=== PATIENT | female | born 1975 | race American Indian/Alaskan Native ===

== ENCOUNTER 2016-12-29 05:59 | Day surgery (SDC) | payer BC, OTHER ==
[2016-12-26 14:34] VITALS: BMI 28.1
--- NOTE | 2016-12-29 00:53 | CP.SDSHP ---
Same Day Surgery H & P - History Proposed Procedure: hysteroscopic Endometrial Ablation Pre-Op Diagnosis: Meorrhagia - Previous Medical/Surgical History Previous Surgical History: Cholecystectomy. Previous Section X2 - Allergies Allergies: Allergies Penicillins Allergy (Severe, Verified 12/26/16 14:35) SWELLING hives throat closure - Physical Exam General Appearance: Well Mental Status: Alert & Oriented x3 Heart: WNL Lungs: WNL GI: WNL - {Optional Preform as Required} Abdomen: WNL TRACK RIDER: Other : WNL - Impression Impression: 41yo female with Menorrhagia Pt. Evaluated Today:Candidate for Anesthesia & Procedure: Yes - Date & Time Date: 12/29/16 Time: 07:00 Short Stay Discharge - Short Stay Discharge Admitting Diagnosis/Reason for Visit: MENORRHAGIA W/IRREGULAR CYCLE Disposition: HOME/ ROUTINE
[2016-12-29] MEDS ORDERED: Propofol 10 mg/ml Inj (20 ML) ONE (07:44)
[2016-12-29] MEDS ORDERED: Midazolam 2 MG/2 ML VIAL ONE (07:44)
[2016-12-29] MEDS ORDERED: Clindamycin 600mg/50ml NS 600 MG/50 ML BAG IVPB ONE (08:08)
[2016-12-29] MEDS ORDERED: Lactated Ringer's 1,000 ML IV ONE (08:08)
[2016-12-29] MEDS ORDERED: HYDROmorphone 0.5 mg/0.5 ml ISec IVP PRN (08:47)
[2016-12-29] MEDS ORDERED: Silver Nitrate Topical - Stick ONE (08:50)
--- NOTE | 2016-12-29 09:05 | PCM.SURG1 ---
Surgeon's Initial Post Op Note - Surgeon's Notes Surgeon: Dr Chua Pillowcase Sewer: Gloria Madrigal( Resident) Type of Anesthesia: General Endo Anesthesia Administered By: DB Mcbride, Supervised by Dr Hamm Pre-Operative Diagnosis: Menorrhagia Operative Findings: 10wk sized anteverted uterus sounded to a deapth of 9cm, Hyperplastic endometrial tissue at hysteroscopy, Endometrial curretings performed. IVF intake -750mls. Urine - 50mls. EBL- 30mls Post-Operative Diagnosis: Same as Preoperative diagnosis Operation Performed: Hysteroscopy with D and C,. Endometrial Ablation via the novasure procedure. Specimen/Specimens Removed: Endometrial curretings Estimated Blood Loss: EBL {In ML}: 30 Blood Products Given: N/A Post-Op Condition: Good Date of Surgery/Procedure: 12/29/16 Time of Surgery/Procedure: 09:07
[2016-12-29 10:00] VITALS: RESP 18
[2016-12-29 12:37] VITALS: BP 126/73; PULSE 81; TEMP 97.1; O2SAT 100
--- NOTE | 2016-12-29 12:59 | OP ---
DATE OF PROCEDURE: 12/29/2016 PREOPERATIVE DIAGNOSIS: A 41-year-old female with menorrhagia, unresponsive to medical treatment. POSTOPERATIVE DIAGNOSIS: A 41-year-old female with menorrhagia, unresponsive to medical treatment. PROCEDURES PERFORMED: 1. D and C hysteroscopy. 2. Endometrial ablation via the NovaSure procedure. SURGEON: Dr. Chua. FOOD AND NUTRITION TEACHER: Lauren Madrigal, [facility] resident. TYPE OF ANESTHESIA: General endotracheal. ANESTHESIA ADMINISTERED BY: Jae ACE, supervised by Dr. Hamm. OPERATIVE FINDINGS: A 10-week size multinodular anteverted uterus which was sounded to a depth of 9 cm. Hyperplastic endometrial tissue was observed at hysteroscopy. Endometrial curettings were performed. This specimen is sent for pathology. IV FLUID INTAKE: 750 mL. URINE OUTPUT: 50 mL. ESTIMATED BLOOD LOSS: 30 mL. COMPLICATIONS: There were no complications. SPECIMENS SENT: Endometrial curettings. DESCRIPTION OF PROCEDURE: After obtaining the informed consent, the patient was sent to the OR with IV running. The patient was placed in a supine position on the OR table after which, a general anesthesia was performed. The patient was then repositioned in the dorsal lithotomy position using Rojelio stirrups. The patient was then prepped and draped in the usual sterile fashion. The urinary catheter was drained with a straight cath with output of about 50 mL of clear urine. The posterior wall of the vagina was depressed with a weighted speculum and the anterior wall was elevated with an L-shaped retractor to expose the cervix. The anterior lip of the cervix was held with a single-tooth tenaculum after which, the uterus was sounded to a depth of about 9 cm. The uterine cavity was estimated to be about 5.0 cm. The cervical canal was then dilated using Hegar dilator to about 8 mm dilatation. Hysteroscopy was performed and the above findings were noted. Endometrial curettings using a sharp curette was performed at this time and the tissue obtained was sent for histopathology. Endometrial ablation was then performed as per customer account technician's instruction with the help of a herbicide service sales representative available. The procedure was completed in about 90 seconds. A repeat hysteroscopy was performed to show adequate ablation of the endometrial cavity. Once the procedure had been completed, all instruments and gauze used were removed from the vagina and the patient was replaced in the supine position. The patient was then sent to the recovery room awake and in stable condition. All counts of instruments and gauze used were correct x3. Stuart Chua MD
== END 2016-12-29 12:42 | disposition home or self-care (01) ==
LOC: C.SDS 05:59
PROVIDERS: ATTEND Obstetrics & Gynecology
DX: N92.1 Excessive and frequent menstruation with irregular cycle (principal)
CPT/HCPCS: 58563; 82948; 88305; J1885; J2001; J2250; J2405; J2704; J2765; J3010; J7120